=== PATIENT | male | born 1950 | race Caucasian/White ===

== ENCOUNTER 2017-05-24 08:32 | Outpatient (CLI) | payer OTHER ==
--- NOTE | 2017-05-24 12:40 | XRAY Report ---
THREE VIEW LUMBAR SPINE: 05/24/2017 CLINICAL INDICATION: Back pain. FINDINGS: AP, lateral, coned down views of the lumbar spine demonstrate minimal dextroscoliosis. The disk spaces are preserved. There is no evidence of acute fracture or subluxation. IMPRESSION: MINIMAL DEXTROSCOLIOSIS. TD: 05/24/2017 12:39
--- NOTE | 2017-05-24 13:20 | CT Report ---
CT SINUSES WITHOUT CONTRAST: 05/24/2017 CLINICAL INDICATION: Sinus pain, pressure. TECHNIQUE: Axial CT images of the paranasal sinuses were obtained without intravenous contrast, following which sagittal and coronal reconstructions were performed. FINDINGS: There is minimal mucosal thickening in the inferior right maxillary sinus. No air fluid levels are present. There is leftward deviation of the nasal septum. The ostiomeatal units are patent. The visualized orbital contents are unremarkable. IMPRESSION: MINIMAL RIGHT MAXILLARY SINUS DISEASE. In accordance with CT protocol optimization, one or more of the following dose reduction techniques were utilized for this exam: automated exposure control, adjustment of mA and/or KV based on patient size, or use of iterative reconstructive technique. TD: 05/24/2017 13:19
== END 2017-05-24 08:33 | disposition home or self-care (01) ==
LOC: DI 08:32
PROVIDERS: ATTEND Physician Assistant
DX: J32.0 Chronic maxillary sinusitis (principal); M41.86 Other forms of scoliosis, lumbar region
CPT/HCPCS: 70486; 72100

== ENCOUNTER 2021-08-10 08:01 | Outpatient (CLI) | payer OTHER ==
[2021-08-10 14:13] LABS: BASOPHILS % (AUTO) 0.7 %; EOSINOPHILS # (AUTO) 0.7 10^3/uL (0.0-0.7); EOSINOPHILS % (AUTO) 11.3 %; HCT - HEMATOCRIT 44.6 % (42.0-52.0); HGB - HEMOGLOBIN 14.3 g/dL (14.0-18.0); LYMPHOCYTES # (AUTO) 1.7 10^3/uL (1.5-3.5); LYMPHOCYTES % (AUTO) 28.2 %; MEAN CORPUSCULAR HEMOGLOBIN 31.4 pg (27.0-31.0); MEAN CORPUSCULAR HGB CONC 32.1 g/dL (32.0-36.0); MEAN CORPUSCULAR VOLUME 97.8 fL (80.0-94.0); MEAN PLATELET VOLUME 9.3 fL (7.4-11.4); MONOCYTES # (AUTO) 0.7 10^3/uL (0.0-1.0); MONOCYTES % (AUTO) 11.6 %; NEUTROPHILS # (AUTO) 2.8 10^3/uL (1.5-6.6); PLT - PLATELET COUNT 263 10^3/uL (130-450); RED BLOOD COUNT 4.56 10^6/uL (4.70-6.10); RED CELL DISTRIBUTION WIDTH 13.2 % (12.0-15.0); WHITE BLOOD COUNT 5.9 x10^3/uL (4.8-10.8)
[2021-08-10 14:33] LABS: ALBUMIN/GLOBULIN RATIO 1.2 (1.0-2.2); ALKALINE PHOSPHATASE 79 IU/L (42-121); ALT ALANINE AMINOTRANSFERASE 25 IU/L (10-60); AST ASPARTATE AMINOTRANSFERASE 25 IU/L (10-42); BILIRUBIN,TOTAL 0.9 mg/dL (0.2-1.0); BUN - BLOOD UREA NITROGEN 28 mg/dL (6-20); CALCIUM 9.6 mg/dL (8.5-10.3); CARBON DIOXIDE - CO2 29 mmol/L (21-32); CHLORIDE 101 mmol/L (101-111); CHOL/HDL RATIO 4.6 (<5.0); CHOLESTEROL 205 mg/dL; CREATININE 1.2 mg/dL (0.6-1.2); GFR - MDRD 60 (>89); GLUCOSE 95 mg/dL (70-100); HDL CHOLESTEROL 45 mg/dL; LDL CHOLESTEROL,CALCULATED 149 mg/dL; LDL/HDL RATIO 3.3 (<3.6); POTASSIUM 4.4 mmol/L (3.5-5.0); SODIUM 137 mmol/L (135-145); TOTAL PROTEIN 7.3 g/dL (6.7-8.2); TRIGLYCERIDES 53 mg/dL; VLDL CHOLESTEROL 11 mg/dL
== END 2021-08-10 08:02 | disposition home or self-care (01) ==
LOC: LAB.S 08:01
PROVIDERS: ATTEND Nurse Practitioner Family
DX: E78.5 Hyperlipidemia, unspecified (principal); G47.00 Insomnia, unspecified; Z12.5 Encounter for screening for malignant neoplasm of prostate
CPT/HCPCS: 36415; 80053; 80061; 83721; 84153; 85025